=== PATIENT | male | born 1955 | race American Indian/Alaskan Native ===

== ENCOUNTER 2020-03-14 13:18 | Emergency (ER) | payer MEDICARE ==
--- NOTE | 2020-03-14 13:30 | Emergency Department Report ---
ED GI Bleed HPI - General Chief complaint: Rectal Pain Stated complaint: PROBLEMS WITH LOWER Time Seen by Provider: 03/14/20 13:27 Source: patient Mode of arrival: Ambulatory Limitations: No Limitations - History of Present Illness Initial comments: 64-year-old male presents to the emergency room complaining of rectal pain x2 days. Patient states that he thinks he has hemorrhoids. Patient states there is blood on the toilet tissue when he wipes. Patient has a current history of hypertension. Patient reports his primary care provider is [facility]. complaint: blood on toilet paper Onset/Timin -: days(s) Severity scale (0 -10): 8 Context: hemorrhoids Associated Symptoms: denies other symptoms - Related Data Previous Rx's Medication Instructions Recorded Last Taken Type Hydrocortisone [Anusol-Hc 2.5% TOP 1 supp RC Q8H PRN #30 cream..g. 03/14/20 Unknown Rx CREAM] Allergies Allergy/AdvReac Type Severity Reaction Status Date / Time No Known Allergies Allergy Unverified 03/14/20 13:23 ED Review of Systems ROS: Stated complaint: PROBLEMS WITH LOWER Other details as noted in HPI Comment: All other systems reviewed and negative ED Past Medical Hx - Past Medical History Previous Medical History?: Yes Hx Hypertension: Yes - Surgical History Past Surgical History?: No - Social History Smoking Status: Current Every Day Smoker Substance Use Type: None - Medications Home Medications: Home Medications Medication Instructions Recorded Confirmed Last Taken Type Hydrocortisone [Anusol-Hc 2.5% TOP 1 supp RC Q8H PRN #30 cream..g. 03/14/20 Unknown Rx CREAM] ED Physical Exam - General Limitations: No Limitations General appearance: alert, in no apparent distress - Head Head exam: Present: atraumatic, normocephalic - Eye Eye exam: Present: normal appearance - ENT ENT exam: Present: mucous membranes moist - Rectal Rectal exam: Present: normal rectal tone, hemorrhoids, tenderness - Back Exam Back exam: Present: normal inspection - Neurological Exam Neurological exam: Present: alert, oriented X3, normal gait - Psychiatric Psychiatric exam: Present: normal affect, normal mood - Skin Skin exam: Present: warm, dry, intact, normal color. Absent: rash ED Course Vital Signs 03/14/20 13:23 Temperature 97.7 F Pulse Rate 83 Respiratory 18 Rate Blood Pressure 147/101 O2 Sat by Pulse 98 Oximetry ED Medical Decision Making - Medical Decision Making 64-year-old male presents to the emergency room complaining of rectal pain x2 days. Patient states that he thinks he has hemorrhoids. Patient states there is blood on the toilet tissue when he wipes. Patient has a current history of hypertension. Patient reports his primary care provider is [facility]. Discussed case with he agrees with plan patient can take [id number] pain medication sits baths, apply ice, eat a high-fiber diet and try wvwd-[id number]-[id number] Anusol. Patient will be referred to colorectal specialist. Critical care attestation.: If time is entered above; I have spent that time in minutes in the direct care of this critically ill patient, excluding procedure time. ED Disposition Clinical Impression: Thrombosed external hemorrhoid Disposition: DC- TO HOME OR SELFCARE Is pt being admited?: No Does the pt Need Aspirin: No Condition: Stable Instructions: Hemorrhoids (ED) Additional Instructions: Can take nisu-nfm-ajhsiem pain medication sits baths, apply ice, eat a high- fiber diet and try [id number]-wzvywol Anusol. Patient will be referred to colorectal specialist. Prescriptions: Hydrocortisone [Anusol-Hc 2.5% TOP CREAM] 1 supp RC Q8H PRN #30 cream..g. PRN Reason: Hemorrhoids Referrals: [facility] [Provider Group] - 3-5 Days [facility] [Outside] - 3-5 Days Forms: Work/School Release Form(ED)
[2020-03-14 14:28] VITALS: BP 132/90
== END 2020-03-14 14:26 | disposition home or self-care (01) ==
LOC: ED 13:18
DX: K64.5 Perianal venous thrombosis (principal); I10 Essential (primary) hypertension; F17.200 Nicotine dependence, unspecified, uncomplicated; Z79.899 Other long term (current) drug therapy
CPT/HCPCS: 99282